=== PATIENT | female | born 2000 | race Caucasian/White ===

== ENCOUNTER 2022-01-12 11:51 | Outpatient (CLI) | payer OTHER, SELFPAY ==
--- NOTE | 2022-01-12 | ECG_ITS ---
Measurements Intervals [place] Rate: 52 P: 63 NM: 112 QRS: 73 QRSD: 86 T: 65 QT: 414 QTc: 388 Interpretive Statements SINUS BRADYCARDIA OTHERWISE NORMAL ECG NO PREVIOUS ECG AVAILABLE FOR COMPARISON Electronically Signed On 01-12-2022 16:52:28 CDT by Mingo Brock M.D.
--- NOTE | ~2022-01-12 | XR_ITS ---
XR chest 2V DATE: 01/12/2022 12:41 INDICATION: Central chest pain. TECHNIQUE: PA and lateral views COMPARISON: None FINDINGS: There is mild levoscoliosis of the upper thoracic spine. Normal heart size. No hilar or mediastinal enlargement. No pulmonary infiltrate or consolidation, ple ural effusion or pulmonary vascular congestion or pneumothorax. IMPRESSION: No active cardiopulmonary disease Reviewed, dictated and finalized at location A.
== END 2022-01-12 11:52 | disposition home or self-care (01) ==
PROVIDERS: PCP Pediatrics; Visit Provider Nurse Practitioner Pediatrics
DX: R07.9 Chest pain, unspecified (principal); R00.1 Bradycardia, unspecified
CPT/HCPCS: 71046; 93005

== ENCOUNTER 2024-01-31 11:39 | Outpatient (CLI) | payer OTHER, SELFPAY ==
--- NOTE | ~2024-01-31 | CT_ITS ---
CT scan of the Neck Technique: 2.5 mm axial scans were obtained through the neck after intravenous administration of 75 c c Omnipaque 350. Coronal and sagittal reconstructions of the neck were obtained. Dose reduction techn ique was used on this scan by utilizing automated exposure control and iterative reconstruction techn ique. The dose-length product (DLP) was 230.35 mGy-cm. Clinical History: dysphonia Findings: There are prominent bilateral cervical lymph nodes, likely reactive in nature. Parapharyngeal fat pre served bilaterally. Parotid and submandibular glands are unremarkable. No abscess evident. Prominent adenoids are noted. The pharyngeal mucosal spaces appear normal. No soft tissue masses are seen in the neck. The thyroid gland appears normal. Images of the lung apices reveal no abnormalities. There is left fr ontal sinus disease and mild bilateral ethmoid sinus disease. Impression: Mild bilateral cervical lymphadenopathy, most likely reactive/inflammatory in nature. No abscess or s oft tissue inflammatory process evident otherwise. Prominent adenoids. Reviewed, dictated and finalized at location M. Impression: Mild bilateral cervical lymphadenopathy, most likely reactive/inflammatory in n ature. No abscess or soft tissue inflammatory process evident otherwise. Prominent adenoids.
== END 2024-01-31 11:40 | disposition home or self-care (01) ==
PROVIDERS: PCP Nurse Practitioner Family; Visit Provider Nurse Practitioner Family
DX: R49.0 Dysphonia (principal); J02.9 Acute pharyngitis, unspecified; J35.1 Hypertrophy of tonsils; R13.10 Dysphagia, unspecified; R50.9 Fever, unspecified
CPT/HCPCS: 70491; Q9967

== ENCOUNTER 2024-02-01 10:45 | Emergency (ER) | payer OTHER, SELFPAY ==
[2024-02-01 10:53] VITALS: RESP 20; O2SAT 100
[2024-02-01 10:55] VITALS: BP 107/67; PULSE 92; RESP 20; O2SAT 100
[2024-02-01] MEDS: KETOROLAC 30 MG/ML VIAL (*BKC) IV PUSH (11:52)
[2024-02-01] MEDS: SODIUM CHLORIDE 0.9% IV 1,000 ML 999 ML IV CONT (11:52)
[2024-02-01] MEDS: LIDOCAINE HCL 2% VISC SOLN 15 ML UDC PO (11:53)
[2024-02-01 11:57] VITALS: BP 112/71; PULSE 73; RESP 20; O2SAT 100
[2024-02-01 11:59] LABS: Basophils Absolute Auto 0.1 K/mm3 (0.0-0.1); Basophils Percent Auto 0.5 % (0.2-1.2); Eosinophils Percent Auto 0.1 % (0-4.4); Hematocrit 44.3 % (37.0-47.0); Hemoglobin 14.4 g/dL (12.0-15.0); Immature Granulocyte Absolute 0.07 K/mm3 (0.00-0.031); Immature Granulocyte Percent A 0.4 % (0-0.5); Lymphocytes Absolute Auto 11.94 K/mm3 (0.9-3.2); Lymphocytes Percent Auto 70.4 % (18.3-44.2); Mean Corpuscular HGB Conc 32.5 g/dl (32-36); Mean Corpuscular Volume 92.3 fl (80-100); Mean Platelet Volume 9.9 fl (7.4-10.4); Monocytes Absolute Auto 0.6 K/mm3 (0.1-0.6); Monocytes Percent Auto 3.2 % (2.6-8.5); Neutrophils Absolute Auto 4.3 K/mm3 (1.3-6.7); Neutrophils Percent Auto 25.4 % (45.5-73.1); Platelet Count Result 238 k/mm3 (150-375); Red Cell Distribution Width 13.6 % (11.5-14.5)
[2024-02-01 12:08] LABS: Alanine Aminotransferase 412 U/L (6-35); Albumin Level 4.1 g/dL (3.5-5.1); Alkaline Phosphatase 166 U/L (38-126); Anion Gap 8 mmol/L (4-12); Aspartate Amino Transferase 168 U/L (14-36); Bilirubin,Total 0.7 mg/dL (0.2-1.3); Blood Urea Nitrogen 13 mg/dL (7-17); Calcium 8.9 mg/dL (8.4-10.2); Carbon Dioxide 28 mmol/L (22-30); Chloride 101 mmol/L (98-107); Estimated Glomerular Filt Rate > 60; Glucose 79 mg/dL (65-110); Monoscreen Positive (Negative); Negative Monotest Control Negative (Negative); Positive Monotest Control Positive (Positive); Potassium 4.2 mmol/L (3.4-5.0); Sodium 137 mmol/L (137-145)
[2024-02-01 12:22] LABS: Platelet Estimate Adequate (Adequate); Schistocytes None Seen
--- NOTE | 2024-02-01 12:27 | ED.GENADULT ---
HPI - General Adult General Chief complaint: Recheck/Abnormal Lab/Rx Stated complaint: swollen lymph nodes Time Seen by Provider: 02/01/24 11:05 History of Present Illness HPI narrative: Patient is a 23-year-old female who presents ER with sore throat. Ongoing for couple weeks. Originally had COVID in developed another illness. She has been tested for strep which is negative. She has been on Augmentin. She has been on 2 rounds of steroids. Her voice is hoarse she has pain returns wall food. Had an outpatient CT soft tissue neck which showed swelling of the adenoids and lymph nodes. She has not yet taken a mono test. No additional known sick contacts. She has been trying Tylenol and ibuprofen as well as Chloraseptic spray. She has used nasal steroids. Related Data Home Medications Medication Instructions Recorded Confirmed albuterol sulfate 90 mcg/actuation 2 puff inhalation Q6H PRN 01/31/23 01/31/24 aerosol inhaler multivitamin (Daily Multi-Vitamin 1 tablet PO DAILY 01/31/23 01/31/24 tablet) fluticasone propionate 50 2 spray intranasal DAILY 01/28/24 01/31/24 mcg/actuation nasal spray,suspension (Flonase Allergy Relief) cetirizine 10 mg tablet (Allergy 10 mg PO DAILY PRN 01/31/24 01/31/24 Relief (cetirizine)) Allergies Allergy/AdvReac Type Severity Reaction Status Date / Time Sulfa (Sulfonamide Allergy Hives Verified 02/01/24 10:56 Antibiotics) Review of Systems Review of Systems: All systems reviewed & are unremarkable except as noted in HPI and below Constitutional: Constitutional: Reports chills, Reports fatigue, Reports fever(s) and Reports weakness ENT: Reports nasal congestion and Reports sore throat Cardiovascular: Cardiovascular: Reports no additional cardiovascular complaints Respiratory: Respiratory: Reports no additional respiratory complaints Gastrointestinal: Gastrointestinal: Reports no additional gastrointestinal complaints [facility] Past Medical History Medical History (Updated 02/01/24 @ 12:32 by Mohit Griffin MD) Allergies Asthma Headache, migraine Loss of appetite Family History Family History Grandparent Hypertension Depression Heart disease Dementia Social History Social History Smoking status: Never smoker Alcohol intake: never Substance use: never Lack of Transportation: No Lack of Food: Never True Current Housing: I Have Housing Concerned About Future Housing: No Difficulty Paying Gas/Electric Bills: No Difficulty Paying for Meds: No Currently Unemployed: No Education: High School Diploma/GED Difficulty w/ Childcare or Family Care: No Exam Narrative: GENERAL: Fatigued-appearing, well-nourished, and in no acute distress. HEAD: Normocephalic, atraumatic. ENT: Dry mucous membranes, pharyngeal erythema without tonsillar exudate or uvular edema. NECK: Mild anterior cervical chain lymphadenopathy. CHEST: Clear to auscultation. No respiratory distress. HEART: Regular rate and rhythm. Normal peripheral pulses. EXTREMITIES: Normal range of motion. No edema. NEURO: Alert and oriented x3. PSYCH: Normal mood and affect. Course Course Emergency Course: Throat pain improved with viscous lidocaine. Discussed lab results. Discussed avoiding any contact sports. Discharge home. Vital Signs Vital signs: Vital Signs Respiratory Rate 02/01/24 10:53 Pulse Oximetry 100 02/01/24 10:53 Pulse Rate 82 02/01/24 12:40 Respiratory Rate 02/01/24 12:40 Blood Pressure 114/73 02/01/24 12:40 Pulse Oximetry 99 02/01/24 12:40 Medical Decision Making Vital Signs Vital Signs: Vital Signs Respiratory Rate 02/01/24 10:53 Pulse Oximetry 100 02/01/24 10:53 Pulse Rate 82 02/01/24 12:40 Respiratory Rate 18 02/01/24 12:40 Blood Pressure 114/73 01/31
[2024-02-01 12:40] VITALS: BP 114/73; PULSE 82; RESP 18; O2SAT 99
== END 2024-02-01 12:44 | disposition home or self-care (01) ==
PROVIDERS: Emergency Provider Emergency Medicine; PCP Nurse Practitioner Family
DX: B27.90 Infectious mononucleosis, unspecified without complication (principal)
CPT/HCPCS: 36415; 80053; 85025; 86308; 99283; J1885; J7030